=== PATIENT | female | born 1985 | race Caucasian/White ===

== ENCOUNTER 2019-06-06 13:50 | Emergency (ER) | payer MEDICAID, SELFPAY ==
[2019-06-06 13:51] VITALS: BP 124/73; PULSE 63; RESP 18; TEMP 36.7; O2SAT 97; BMI 31.3
--- NOTE | 2019-06-06 14:28 | RAD_ITS ---
STUDY: X-RAY - LUMBAR SPINE REASON FOR EXAM: Female, 34 years old. Pain TECHNIQUE: 3 view(s) of the lumbar spine were obtained. COMPARISON: None FINDINGS: Mild deformity of the superior end plate of L2. Possible fracture cannot be excluded with certainty. Correlation with MRI is helpful. Normal lumbar lordosis. There is no substantial scoliosis. There is a normal alignment of the vertebrae. There is multilevel endplate spondylosis of the lumbar vertebrae. There is multi-level degenerative disc disease with multi-level disc space narrowing. There is no demonstrated spondylolysis of the pars interarticulares. The soft tissue structures are unremarkable. RAD/Lumbar Spine 2 or 3 Views IMPRESSION: Mild deformity of the superior end plate of L2. Possible fracture cannot be excluded with certainty. Correlation with MRI is helpful. Electronically Signed: Sergio Veras MD at 15:15 EDT Tel [phone], Service support ,
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
--- NOTE | 2019-06-06 15:39 | CT_ITS ---
STUDY: CT LUMBAR SPINE WITHOUT CONTRAST REASON FOR EXAM: Female, 34 years old. Low back pain after injury RADIATION DOSAGE (If Supplied By Facility): CTDIvol = ( 19.09 ) mGy, DLP = ( 497.54 ) mGycm TECHNIQUE: The patient was scanned in a multi detector CT scanner. High resolution transaxial imaging was performed. Images were obtained from T12-L1 to S1 to. Sagittal and coronal images were reconstructed. Individualized dose optimization techniques were used for this CT. COMPARISON: 3 plain film views of the lumbar spine 1440 hours. FINDINGS: Normal lumbar lordosis. There is no substantial scoliosis. Normal alignment of the lumbar vertebral bodies. Normal morphology of the vertebrae of the lumbar spine. There is no demonstrated compression deformity or fracture of the visualized lumbar vertebrae. L1-2: Normal endplates. Normal disc height and morphology. Normal bilateral facet joints. Normal central canal and bilateral lateral recesses. Normal bilateral intervertebral neural foramina. L2-3: Normal endplates. Normal disc height and morphology. Normal bilateral facet joints. Normal central canal and bilateral lateral recesses. Normal bilateral intervertebral neural foramina. L3-4: Normal endplates. Normal disc height and morphology. There is early degenerative change of the posterior aspect of the right facet joint.. Normal central canal and bilateral lateral recesses. Normal bilateral intervertebral neural foramina. L4-5: Minor degenerative anterior L4 endplate spurring. Normal disc height and circumferential disc bulge. Normal bilateral facet joints. There is disc effacement of the anterior central canal and bilateral lateral recesses. Normal bilateral intervertebral neural foramina. L5-S1: Normal endplates. Normal disc height with wide-based right posterolateral disc bulge. Normal bilateral facet joints. There is disc encroachment on the right lateral recess of the central canal and potential irritation of the descending right S1 nerve root. Normal bilateral intervertebral neural foramina. Normal visualized paraspinous soft tissue structures. CT/Spine Lumbar without Contrast IMPRESSION: No acute fracture of the lumbar spine. Minor degenerative changes in the lower lumbar spine, as noted. Electronically Signed: Jose Fowler MD at 16:15 EDT , Service support ,
== END 2019-06-06 17:57 | disposition home or self-care (01) ==
PROVIDERS: Emergency Provider Emergency Medicine
DX: S39.012A Strain of muscle, fascia and tendon of lower back, initial encounter (principal); X58.XXXA Exposure to other specified factors, initial encounter; Z87.891 Personal history of nicotine dependence
CPT/HCPCS: 72100; 72131; 99282

== ENCOUNTER 2020-02-02 16:37 | Emergency (ER) | payer MEDICAID, SELFPAY ==
[2020-02-02 16:38] VITALS: BP 154/78; PULSE 103; RESP 18; TEMP 36.3; O2SAT 98; BMI 30.7
[2020-02-02 16:49] VITALS: RESP 16
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
[2020-02-02] MEDS: Lidocaine/Epi/Tetracaine 50 ML 1 APPLIC TOPICAL (17:58)
[2020-02-02] MEDS: traMADol 50 MG Tablet PO (19:03)
[2020-02-02] MEDS: Ibuprofen 600 MG Tablet PO (19:03)
[2020-02-02 19:07] VITALS: BP 138/74; PULSE 76; RESP 18; O2SAT 99
== END 2020-02-02 19:08 | disposition home or self-care (01) ==
PROVIDERS: Emergency Provider Emergency Medicine
DX: S01.511A Laceration without foreign body of lip, initial encounter (principal); S01.81XA Laceration without foreign body of other part of head, initial encounter; Y92.410 Unspecified street and highway as the place of occurrence of the external cause; V86.55XA Driver of 3- or 4- wheeled all-terrain vehicle (ATV) injured in nontraffic accident, initial encounter; Y93.I9 Activity, other involving external motion; Y92.828 Other wilderness area as the place of occurrence of the external cause; Y99.8 Other external cause status; Z87.891 Personal history of nicotine dependence
CPT/HCPCS: 12013; 70450; 70486; 99284